=== PATIENT | female | born 1945 | race Caucasian/White ===

== ENCOUNTER 2018-05-28 09:19 | Day surgery (SDC) | payer BC, OTHER ==
[2018-05-24 11:29] LABS: BILIRUBIN,URINE NEGATIVE (NEGATIVE); BLOOD, URINE 1+ (NEGATIVE); CLARITY/URINE CLEAR (CLEAR); COLOR,URINE YELLOW (YELLOW); GLUCOSE,URINE NEGATIVE (NEGATIVE); KETONES,URINE NEGATIVE (NEGATIVE); LEUKOCYTE ESTERASE ,URINE NEGATIVE (NEGATIVE); NITRITE, URINE NEGATIVE (NEGATIVE); PH,URINE 6.5 (5.0-8.0); PROTEIN URINE NEGATIVE (NEGATIVE); UROBILINOGEN,URINE 0.2 (0.2-1.0)
[2018-05-24 11:38] LABS: BASOPHILS % (AUTO) 0.4 % (0.0-2.0); EOSINOPHILS % (AUTO) 0.6 % (0.0-4.0); HEMATOCRIT 42.4 % (36-48); HEMOGLOBIN 14.2 g/dL (12.0-16.0); LYMPHOCYTES # (AUTO) 2.1 K/uL (1.0-5.5); LYMPHOCYTES % (AUTO) 30.6 % (20.5-51.5); MEAN CORPUSCULAR HEMOGLOBIN 30 pg (27-31); MEAN CORPUSCULAR HGB CONC 34 % (32-36); MEAN CORPUSCULAR VOLUME 91 fL (79.0-98.0); MONOCYTES # (AUTO) 0.5 K/uL (0.0-1.0); MONOCYTES % (AUTO) 6.9 % (1.7-9.3); NEUTROPHILS # (AUTO) 4.2 K/uL (1.8-7.7); NEUTROPHILS % (AUTO) 61.5 % (40.0-70.0); PLATELET COUNT (AUTO) 247 K/uL (130-430); RED BLOOD CELL COUNT(AUTO) 4.68 MIL/uL (4.2-6.2); RED CELL DISTRIBUTION WIDTH 12.7 % (9.0-15.0); WHITE BLOOD COUNT (AUTO) 6.8 K/uL (4.8-10.8)
[2018-05-24 11:47] LABS: ANION GAP 5 (5-15); CALCIUM 8.9 mg/dL (8.4-11.0); CHLORIDE 104 mmol/L (98-107); CREATININE 0.65 mg/dL (0.55-1.30); GLUCOSE 95 mg/dL (70-99); POTASSIUM 3.7 mmol/L (3.5-5.1); SODIUM SERUM 138 mmol/L (136-145); UREA NITROGEN, BLOOD 12 mg/dL (8-21)
[2018-05-24 11:51] LABS: BACTERIA,URINE FEW /HPF (None Seen); MUCUS,URINE None Seen /LPF (None Seen); WBC,URINE 0-3 /HPF (0-3); YEAST,URINE None Seen /HPF (None Seen)
[~2018-05-28] VITALS: Ht 157.5 cm; Wt 70.3 kg
[2018-05-28] MEDS ORDERED: CEFAZOLIN SOD 2 GM in D5W 50 ML IV ONE (10:00)
[2018-05-28] MEDS ORDERED: KETOROLAC TROMETHAMINE 30 MG VIAL IVP ONE (11:30)
[2018-05-28] MEDS ORDERED: LIDOCAINE MPF 0.5% 250 MG/50 ML VIAL INJ ONE (11:30)
[2018-05-28] MEDS ORDERED: MIDAZOLAM HCL 5 MG/5 ML VIAL IVP ONE (11:30)
[2018-05-28] MEDS ORDERED: fentaNYL CITRATE/PF 100 MCG/2 ML AMP IVP ONE (11:30)
[2018-05-28] MEDS ORDERED: WATER FOR IRRIGATION,STERILE 1,000 ML IRRIG.SOLN IR ONE (11:30)
[2018-05-28] MEDS ORDERED: PROPOFOL 200MG/ 20ML VIAL (DIPRIVAN) IV ONE (11:30)
[2018-05-28] MEDS ORDERED: fentaNYL CITRATE/PF 100 MCG/2 ML AMP IVP PRN ×2 (12:15)
[2018-05-28] MEDS ORDERED: LR 1,000 ML IV SCH (12:42)
[2018-05-28] MEDS ORDERED: ACETAMINOPHEN 325 MG TABLET PO PRN (12:45)
[2018-05-28] MEDS ORDERED: DIPHENHYDRAMINE HCL 25 MG CAPSULE PO PRN (12:45)
[2018-05-28] MEDS ORDERED: fentaNYL CITRATE/PF 100 MCG/2 ML AMP ONE (13:06)
[2018-05-28] MEDS ORDERED: traMADol HCL HCL 50 MG TABLET (ULTRAM) PO ONE (13:15)
[2018-05-28 13:45] VITALS: BP_SYST 143
== END 2018-05-28 14:35 | disposition home or self-care (01) ==
LOC: SDS 09:19 → SMU 09:19 → SDS 14:35
PROVIDERS: ATTEND Orthopaedic Surgery
DX: M65.311 Trigger thumb, right thumb (principal); I10 Essential (primary) hypertension; M48.061 Spinal stenosis, lumbar region without neurogenic claudication; M19.049 Primary osteoarthritis, unspecified hand; M18.11 Unilateral primary osteoarthritis of first carpometacarpal joint, right hand; M89.9 Disorder of bone, unspecified; Z98.890 Other specified postprocedural states; Z79.899 Other long term (current) drug therapy
CPT/HCPCS: 26055; 36415; 71046; 80048; 81000; 85025; J0690; J1885; J2001; J2250; J2704; J3010; J7060; J7120